=== PATIENT | male | born 1950 | race Hispanic/Latino ===

== ENCOUNTER 2017-11-11 15:00 | Inpatient (IN) | payer MEDICARE ==
[~2017-11-11] VITALS: Ht 170.2 cm; Wt 99.2 kg
[2017-11-11 15:14] VITALS: BP 128/66
[2017-11-11 15:28] LABS: APPEARANCE,URINE Clear (CLEAR); BILIRUBIN,URINE Negative (NEGATIVE); COLOR,URINE Yellow (YELLOW); GLUCOSE, URINE (UA) Negative (NEGATIVE); KETONES,URINE Trace mg/dL (NEGATIVE); LEUKOCYTE ESTERASE ,URINE Small (NEGATIVE); NITRATE,URINE Negative (NEGATIVE); OCCULT BLOOD,URINE Negative (NEGATIVE); PH,URINE 6.5 (5.0-8.0); PROTEIN,URINE Negative (NEGATIVE); UROBILINOGEN,URINE 0.2 mg/dL (0.2-1.0)
[2017-11-11 15:36] LABS: BACTERIA,URINE Few /HPF (None Seen); RBC,URINE None Seen /HPF (0-1)
[2017-11-12] VITALS (21 sets, daily range): BP systolic 88–138; BP diastolic 50–83
[2017-11-12] MEDS: CEFAZOLIN SODIUM 1 GM VIAL IVP SCH ×2 (08:00→10:30)
[2017-11-12] MEDS ORDERED: LACTATED RINGERS 1000ML 1,000 ML IV ONE (08:15)
[2017-11-12] MEDS: GENTAMICIN SULFATE 240 MG in SODIUM CHLORIDE 0.9% 100 ML IV SCH ×2 (08:40→10:15)
[2017-11-12] MEDS ORDERED: METOCLOPRAMIDE 10 MG/2 ML VIAL ONE (08:46)
[2017-11-12] MEDS ORDERED: KETOROLAC TROMETHAMINE 15MG/ML ONE (08:47)
[2017-11-12] MEDS ORDERED: ACETAMINOPHEN EXTRA STRENGTH 500 MG TABLET ONE (08:47)
[2017-11-12] MEDS ORDERED: CELECOXIB 200 MG CAP ONE (08:47)
[2017-11-12] MEDS ORDERED: OXYCODONE HCL 10 MG TAB.SR.12H PO ONE (08:48)
[2017-11-12] MEDS ORDERED: TRANEXAMIC ACID 1000MG/10ML IV ONE ×2 (08:53→12:53)
[2017-11-12] MEDS ORDERED: CEFAZOLIN SODIUM 1 GM VIAL ONE (08:53)
[2017-11-12] MEDS ORDERED: LIDOCAINE PF 2% 5ML ABBOJECT ONE (09:11)
[2017-11-12] MEDS ORDERED: LIDOCAINE HCL 4% LTA SOL 4 ML VIAL ONE (09:11)
[2017-11-12] MEDS ORDERED: LIDOCAINE HCL-MPF 1% 5ML AMP IJ ONE (09:11)
[2017-11-12] MEDS ORDERED: ONDANSETRON HCL MDV 20ML 2 MG/ML VIAL ONE (09:11)
[2017-11-12] MEDS ORDERED: DEXAMETHASONE SOD PHOSPHATE 10MG/ML 1ML VIAL ONE (09:11)
[2017-11-12] MEDS ORDERED: LIDOCAINE HCL 2% JELLY 5 ML ONE (09:11)
[2017-11-12] MEDS ORDERED: GLYCOPYRROLATE 1 MG/5 ML SYRINGE ONE (09:11)
[2017-11-12] MEDS ORDERED: ROCURONIUM BROMIDE 10MG/1ML 5ML VL ONE (09:11)
[2017-11-12] MEDS ORDERED: ROPIVACAINE 0.5% 5MG/ML 30ML IJ ONE (09:11)
[2017-11-12] MEDS ORDERED: PROPOFOL 10 MG/ML 20ML VIAL IV ONE (09:12)
[2017-11-12] MEDS ORDERED: MIDAZOLAM HCL 1 MG/ML 2ML VIAL ONE (09:12)
[2017-11-12] MEDS ORDERED: FENTANYL CITRATE PF 50 MCG/1 ML 2ML VIAL ONE (09:12)
[2017-11-12] MEDS ORDERED: BUPIVACAINE/PF 0.25% 10ML VIAL IJ ONE (10:59)
[2017-11-12] MEDS ORDERED: EPINEPHRINE 1 MG/ML AMPULE ONE (10:59)
[2017-11-12] MEDS ORDERED: SODIUM CHLORIDE 0.9% 1000ML 1,000 ML IV SCH (12:18)
[2017-11-12] MEDS ORDERED: ACETAMINOPHEN EXTRA STRENGTH 500 MG TABLET PO SCH (12:30)
[2017-11-12] MEDS ORDERED: LIDOCAINE HCL-MPF 1% 2ML VIAL IVP PRN ×2 (12:30→14:15)
[2017-11-12] MEDS ORDERED: TRAMADOL HCL 50 MG TABLET PO PRN ×2 (12:30→14:15)
[2017-11-12] MEDS ORDERED: FERROUS FUMARATE 324 MG TABLET PO PRN ×2 (12:30→14:00)
[2017-11-12] MEDS ORDERED: OXYCODONE HCL 5 MG TAB PO PRN ×4 (12:30→14:00)
[2017-11-12] MEDS ORDERED: CALCIUM CARBONATE 500 MG TABLET PO PRN ×2 (12:30→14:00)
[2017-11-12] MEDS ORDERED: DiphenhydrAMINE HCL 50 MG/ML VIAL IVP PRN ×2 (12:30→14:00)
[2017-11-12] MEDS ORDERED: POTASSIUM CHLORIDE 20MEQ/100ML 100 ML IV PRN ×2 (12:30→14:00)
[2017-11-12] MEDS ORDERED: TEMAZEPAM 15 MG CAPSULE PO PRN ×2 (12:30→14:00)
[2017-11-12] MEDS ORDERED: POTASSIUM CHLORIDE 10% ELIXIR 20 MEQ/15 ML UDCUP PO PRN ×2 (12:30→14:00)
[2017-11-12] MEDS ORDERED: POTASSIUM CHLORIDE 20 MEQ ERTAB PO PRN ×2 (12:30→14:00)
[2017-11-12] MEDS ORDERED: KETOROLAC TROMETHAMINE 15MG/ML IV PRN ×2 (12:30→14:00)
[2017-11-12] MEDS ORDERED: ONDANSETRON HCL 4 MG/2 ML VIAL IVP PRN ×2 (12:30→14:00)
[2017-11-12] MEDS ORDERED: NEOSTIGMINE 5MG/5ML SYR IV ONE (12:41)
[2017-11-12] MEDS ORDERED: MEPERIDINE-PF 25 MG/ML SYG ONE (13:24)
[2017-11-12] MEDS: SODIUM CHLORIDE 0.9% 1000ML 1,000 ML IV SCH (14:00)
[2017-11-12] MEDS ORDERED: BISACODYL 10 MG SUPP.RECT RC PRN (14:00)
[2017-11-12] MEDS: ACETAMINOPHEN EXTRA STRENGTH 500 MG TABLET PO SCH ×2 (14:52→21:12)
[2017-11-12] MEDS: CEFAZOLIN 3GM /D5W 100ML 100 ML IV SCH (18:05)
[2017-11-12] MEDS ORDERED: CELECOXIB 200 MG CAP PO SCH (21:00)
[2017-11-12] MEDS ORDERED: FAMOTIDINE 20MG TAB 20 MG TAB PO SCH (21:00)
[2017-11-12] MEDS ORDERED: ASPIRIN 325 MG TABLET PO SCH (21:00)
[2017-11-12] MEDS ORDERED: PREGABALIN 25 MG CAP PO SCH (21:00)
[2017-11-12] MEDS: CELECOXIB 200 MG CAP PO SCH (21:12)
[2017-11-12] MEDS: FAMOTIDINE 20MG TAB 20 MG TAB PO SCH (21:13)
[2017-11-12] MEDS: ASPIRIN 325 MG TABLET PO SCH (21:13)
[2017-11-12] MEDS: PREGABALIN 25 MG CAP PO SCH (21:13)
[2017-11-13] MEDS: SODIUM CHLORIDE 0.9% 1000ML 1,000 ML IV SCH (00:09)
[2017-11-13] MEDS: CEFAZOLIN 3GM /D5W 100ML 100 ML IV SCH (00:09)
[2017-11-13 00:16] VITALS: BP 106/73
[2017-11-13 04:20] VITALS: BP 137/78
[2017-11-13 04:48] LABS: HEMATOCRIT 40.8 % (42-54); MEAN CORPUSCULAR HEMOGLOBIN 31.7 pg (27.0-33.0); MEAN CORPUSCULAR HGB CONC 34.8 g/dL (32.0-36.0); MEAN CORPUSCULAR VOLUME 91.1 fL (79-99); PLATELET COUNT (AUTO) 173 K/uL (130-400); RED BLOOD CELL COUNT(AUTO) 4.48 MIL/uL (4.50-6.20); RED CELL DISTRIBUTION WIDTH 13.8 % (11.0-15.5); WHITE BLOOD COUNT (AUTO) 18.2 K/uL (4.8-10.8)
[2017-11-13 04:57] LABS: POTASSIUM 4.1 mmol/L (3.5-5.1)
[2017-11-13] MEDS: ACETAMINOPHEN EXTRA STRENGTH 500 MG TABLET PO SCH ×2 (06:23→14:33)
[2017-11-13 08:22] VITALS: BP 148/76
[2017-11-13] MEDS ORDERED: TAMSULOSIN HCL 0.4 MG CAP.ER.24H PO SCH ×2 (09:00)
[2017-11-13] MEDS ORDERED: POLYETHYLENE GLYCOL 3350 17 GM POWD.PACK PO SCH ×2 (09:00)
[2017-11-13] MEDS: PREGABALIN 25 MG CAP PO SCH (09:23)
[2017-11-13] MEDS: FAMOTIDINE 20MG TAB 20 MG TAB PO SCH (09:23)
[2017-11-13] MEDS: ASPIRIN 325 MG TABLET PO SCH (09:23)
[2017-11-13] MEDS: CELECOXIB 200 MG CAP PO SCH (09:23)
[2017-11-13 12:00] VITALS: BP 120/71
[2017-11-13] MEDS ORDERED: HYDR-309 PO (15:51)
[2017-11-13] MEDS ORDERED: ASPI-1012 PO (15:51)
[2017-11-13 16:00] VITALS: BP 118/68
[2017-11-15] MEDS ORDERED: BISACODYL 10 MG SUPP.RECT RC PRN (12:30)
== END 2017-11-13 18:55 | disposition home health service (06) | DRG 470 ==
LOC: EDSTATUS 15:00 → DAHIP 11-12 07:44 → 4BH 11-12 12:24
PROVIDERS: ADMIT Orthopaedic Surgery; ATTEND Orthopaedic Surgery
PROC: 0SRC0J9 Replacement of Right Knee Joint with Synthetic Substitute, Cemented, Open Approach (ICD-10-PCS; principal; 2017-11-12 10:20)
DX: M17.11 Unilateral primary osteoarthritis, right knee (principal); K21.9 Gastro-esophageal reflux disease without esophagitis; G89.29 Other chronic pain; Z80.9 Family history of malignant neoplasm, unspecified
CPT/HCPCS: 36415; 80048; 81001; 85027; 88305; 88311; 96365; 96374; 96375; A4218; J0171; J0690; J1100; J1580; J1885; J2001; J2175; J2250; J2704; J2710; J2765; J2795; J3010; J3490; J7030; J7120

== ENCOUNTER 2018-08-14 06:59 | Day surgery (SDC) | payer OTHER, MEDICARE ==
[2018-08-12 15:37] VITALS: BP 123/70
[2018-08-12 15:38] LABS: BASOPHILS % (AUTO) 0.6 % (0.0-5.0); EOSINOPHILS % (AUTO) 6.8 % (0.0-8.0); HEMATOCRIT 48.6 % (42-54); LYMPHOCYTES % (AUTO) 22.9 % (21.0-51.0); MEAN CORPUSCULAR HEMOGLOBIN 31.3 pg (27.0-33.0); MEAN CORPUSCULAR HGB CONC 34.5 g/dL (32.0-36.0); MEAN CORPUSCULAR VOLUME 90.7 fL (79-99); MONOCYTES % (AUTO) 9.4 % (3.0-13.0); NEUTROPHILS % (AUTO) 60.3 % (40.0-77.0); NUCLEATED RED BLOOD CELLS 0.1 % (0.0-0.19); PLATELET COUNT (AUTO) 166 K/uL (130-400); RED BLOOD CELL COUNT(AUTO) 5.36 MIL/uL (4.50-6.20); RED CELL DISTRIBUTION WIDTH 14.1 % (11.0-15.5); WHITE BLOOD COUNT (AUTO) 9.1 K/uL (4.8-10.8)
[2018-08-12 15:49] LABS: CREATININE 0.9 mg/dL (0.5-1.5); POTASSIUM 4.3 mmol/L (3.5-5.1)
[2018-08-13] MEDS: CEFTRIAXONE SODIUM 1 GM IVP SCH (09:30)
[2018-08-14] VITALS (15 sets, daily range): BP systolic 122–146; BP diastolic 61–79
[~2018-08-14] VITALS: Ht 168.9 cm; Wt 94.5 kg
[~2018-08-14 06:59] MED LIST: GENTAMICIN 80 MG/NS 100 ML PB 100 ML IV SCH; NAPR220T57 PO; TAMS0.4C32 PO
[2018-08-14] MEDS ORDERED: LACTATED RINGERS 1000ML 1,000 ML IV ONE (07:26)
[2018-08-14] MEDS ORDERED: PROPOFOL 10 MG/ML 20ML VIAL IV ONE (08:06)
[2018-08-14] MEDS ORDERED: LIDOCAINE PF 2% 5ML ABBOJECT ONE (08:06)
[2018-08-14] MEDS ORDERED: FENTANYL CITRATE PF 50 MCG/1 ML 2ML VIAL ONE (08:07)
[2018-08-14] MEDS: CEFTRIAXONE SODIUM 1 GM IVP SCH (08:50)
[2018-08-14] MEDS ORDERED: EPHEDRINE SULFATE 50 MG/ML AMPULE ONE (09:02)
[2018-08-14] MEDS ORDERED: OPIUM/BELLADONNA ALKALOIDS 1 EACH SUPP.RECT RC ONE (10:09)
--- NOTE | 2018-08-14 11:10 | NUR ---
POSTOP RECEIVED PT FROM PACU, S/P GREENLIGHT LASER, DRESSING TO TIP OF PENIS DRY AND INTACT, 17F FC IN PLACE DRAINING CLEAR YELLOW URINE. PT AWAKE AND ALERT IN BED,NO DISTRESS NOTED.
[2018-08-14] MEDS ORDERED: PHENAZOPYRIDINE HCL 200 MG TABLET ONE (11:24)
--- NOTE | 2018-08-14 11:54 | NUR ---
DC DC INSTRUCTIONS GIVEN TO PT/ SPOUSE WITH RX, INSTRUCTED ON DEL ROSARIO CATH CARE, NEW MED REGIMEN, F/U APPOINTMENT, FC LEG KORY PLACED . PIV REMOVED. SITE ASYMPTOMATIC, PT DENIES ANY PAIN OR DISCOMFORTS.
--- NOTE | 2018-08-14 12:08 | NUR ---
DC PT DC HOME VIA WC/ NO DISTRESS NOTED. DENIES ANY PAIN OR DISCOMFORTS. ACCOMPANIED BY SPOUSE,
== END 2018-08-14 12:08 | disposition home or self-care (01) ==
LOC: DAH 06:59
PROVIDERS: ATTEND Urology
DX: N40.1 Benign prostatic hyperplasia with lower urinary tract symptoms (principal); R35.1 Nocturia; Z79.899 Other long term (current) drug therapy; Z98.890 Other specified postprocedural states; Z88.8 Allergy status to other drugs, medicaments and biological substances; Z87.891 Personal history of nicotine dependence; K21.9 Gastro-esophageal reflux disease without esophagitis
CPT/HCPCS: 36415; 52648; 80048; 85025; 88305; A4218; A4354; A4358; J0696; J1580 ×2; J2001; J2704; J3010; J3490; J7030; J7120; 93005

== ENCOUNTER → 2022-10-17 | Outpatient (CLI) | payer OTHER, MEDICARE ==
[~2022-10-17] MED LIST changes: -GENTAMICIN 80 MG/NS 100 ML PB 100 ML IV SCH
[2022-10-17 08:37] LABS: BASOPHILS % (AUTO) 0.5 % (0.0-5.0); EOSINOPHILS % (AUTO) 10.7 % (0.0-8.0); HEMATOCRIT 46.9 % (42-54); LYMPHOCYTES % (AUTO) 22.4 % (21.0-51.0); MEAN CORPUSCULAR HEMOGLOBIN 30.5 pg (27.0-33.0); MEAN CORPUSCULAR VOLUME 92.1 fL (79-99); MONOCYTES % (AUTO) 7.4 % (3.0-13.0); NEUTROPHILS % (AUTO) 58.7 % (40.0-77.0); PLATELET COUNT (AUTO) 166 K/uL (130-400); RED BLOOD CELL COUNT(AUTO) 5.09 MIL/uL (4.50-6.20); RED CELL DISTRIBUTION WIDTH 14.2 % (11.0-15.5); WHITE BLOOD COUNT (AUTO) 7.5 K/uL (4.8-10.8)
[2022-10-17 08:42] LABS: HEMOGLOBIN A1C 5.8 % (4.0-6.0)
[2022-10-17 09:05] LABS: ALANINE AMINOTRANSFERASE 28 U/L (12-78); ALBUMIN 3.8 g/dL (3.5-5.0); AMMONIA 15 umol/L (11-32); ASPARTATE AMINOTRANSFERASE 15 U/L (10-37); CARBON DIOXIDE 28 mmol/L (21-32); CHLORIDE 107 mmol/L (101-111); CREATININE 0.8 mg/dL (0.5-1.5); GLOMERULAR FILTR. RATE CALC 94 mL/min (>90); GLUCOSE,RANDOM 117 mg/dL (70-105); POTASSIUM 4.1 mmol/L (3.5-5.1); SODIUM SERUM 140 mmol/L (136-145); THYROID STIMULATING HORMONE 2.01 uIU/mL (0.36-3.74); TOTAL PROTEIN, SERUM 7.4 g/dL (6.0-8.3); UREA NITROGEN, BLOOD 11 mg/dL (7-18)
[2022-10-17 09:07] LABS: CRP QUANTITATIVE < 2.00 mg/L (0.00-9.0)
[2022-10-17 09:35] LABS: ERYTHROCYTE SEDIMENTATION RATE 1 MM/HR (0-20)
[2022-10-18 15:24] LABS: RAPID PLASMA REAGIN NONREACTIVE (NONREACTIVE)
[2022-10-22 22:08] LABS: B.BURGOR (LYME) IGG WB INTERP Negative (.); LYME IGM-WB INTERP Negative (.); LYME IGM-WB P23 AB Absent (.); LYME IGM-WB P39 AB Absent (.); LYME IGM-WB P41 AB Absent (.)
== END | disposition home or self-care (01) ==
LOC: LAB 10-16 15:08
PROVIDERS: ATTEND Psychiatry & Neurology Neurology
DX: G60.9 Hereditary and idiopathic neuropathy, unspecified (principal); R73.03 Prediabetes; B99.8 Other infectious disease
CPT/HCPCS: 36415; 80053; 82140; 82164; 82375; 82525; 82607; 82746; 83036; 83090; 83883; 83921; 84207; 84425; 84443; 84446; 84630; 85025; 85651; 86038; 86140; 86215; 86235; 86334; 86431; 86592; 86701; 87390